=== PATIENT | male | born 1995 | race Caucasian/White ===

== ENCOUNTER 2019-09-04 20:07 | Emergency (ER) | payer SELFPAY ==
[2019-09-04] MEDS ORDERED: Proparacaine 0.5% Ophth Soln 15 ML Bottle EYERT ONE (20:44)
--- NOTE | 2019-09-04 21:03 | EDM.PDOC ---
ED HPI GENERAL MEDICAL PROBLEM - General Chief Complaint: Eye Problems Stated Complaint: RIGHT EYE INJURY Time Seen by Provider: 09/04/19 20:30 Source of Information: Reports: Patient, Family History Limitations: Reports: No Limitations - History of Present Illness INITIAL COMMENTS - FREE TEXT/NARRATIVE: 24-year-old male that had an accident at work when high-pressure yeast blew back and struck his right eye. This happened within the last hour. He has a foreign body sensation in the upper eye, erythema, and discomfort. He thinks his contact is stuck under his lid. No injury to the left eye. Onset: Sudden Duration: Hour(s): (1 hour ago) Location: Reports: Other (Right eye) Associated Symptoms: Reports: No Other Symptoms Right Eye Pain Score (Numeric/FACES): 2 - Related Data Allergies Allergy/AdvReac Type Severity Reaction Status Date / Time No Known Allergies Allergy Verified 09/04/19 20:29 Home Meds: Home Meds NK [No Known Home Meds] 09/04/19 [History] Past Medical History Musculoskeletal History: Reports: Fracture Other Musculoskeletal History: r hand Psychiatric History: Reports: Anxiety - Infectious Disease History Infectious Disease History: Reports: Chicken Pox - Past Surgical History GI Surgical History: Reports: Appendectomy Social & Family History - Tobacco Use Smoking Status *Q: Never Smoker Second Hand Smoke Exposure: No - Caffeine Use Caffeine Use: Reports: Coffee - Alcohol Use Days Per Week of Alcohol Use: 2 Number of Drinks Per Day: 3 Total Drinks Per Week: 6 - Recreational Drug Use Recreational Drug Use: No ED ROS GENERAL - Review of Systems Review Of Systems: See Below Constitutional: Denies: Fever, Chills Respiratory: Denies: Shortness of Breath Cardiovascular: Denies: Chest Pain GI/Abdominal: Denies: Abdominal Pain, Nausea, Vomiting Neurological: Denies: Headache Psychiatric: Reports: No Symptoms ED EXAM GENERAL W FULL EYE - Physical Exam Exam: See Below Exam Limited By: No Limitations General Appearance: Alert, No Apparent Distress (Looks uncomfortable but not distressed) Eyelids: Right: Erythema (Patient has erythema of the upper and lower eyelid of the right eye as well as the conjunctiva), Foreign Body (Inverting his upper lid we did find small particles of yeast that were removed, his symptoms resolved after the removal of the foreign bodies. No contact was found.) Conjunctiva & Sclera: Right: Conjunctival Edema (Mild to moderate conjunctival edema and injection) Cornea Exam: Bilateral: Normal Appearance (Cornea fortunately was normal even with fluorescein staining) Head: Atraumatic Respiratory/Chest: No Respiratory Distress Course - Vital Signs Last Recorded V/S: Last Vital Signs Temp 96.5 F L 09/04/19 20:34 Pulse 116 H 09/04/19 20:34 Resp 16 09/04/19 20:34 BP 141/98 H 09/04/19 20:34 Pulse Ox 97 09/04/19 20:34 - Orders/Labs/Meds Meds: Medications Discontinued Medications Generic Name Dose Route Start Last Admin Trade Name Freq PRN Reason Stop Dose Admin Proparacaine HCl 1 ml 09/04/19 20:44 09/04/19 20:48 Proparacaine 0.5% Ophth Soln EYERT 09/04/19 20:45 1 ml ONETIME ONE Administration - Re-Assessments/Exams Free Text/Narrative Re-Assessment/Exam: 09/04/19 21:00 After manipulating the eyelids looking for foreign bodies and his contact, the foreign body under the upper eyelid was dislodged and his symptoms resolved. We then used some proparacaine anesthesia to further examine the eye with fluorescein staining. There was some uptake on the conjunctiva around the cornea on the lower aspect of the right eye but the cornea was clear, no further foreign bodies were found under the eyelids. His symptoms had basically resolved prior to the proparacaine anesthesia. Departure - Departure Time of Disposition: 21:10 Disposition: Home, Self-Care 01 Clinical Impression: Foreign body of eyelid, right Abrasion of conjunctiva Qualifiers: Encounter type: initial encounter Laterality: right Qualified Code(s): S05.01XA - Injury of conjunctiva and corneal abrasion without foreign body, right eye, initial encounter - Discharge Information Instructions: Eye Foreign Body, [id number] Referrals: PCP,None [Primary Care Provider] - Forms: ED Department Discharge Care Plan Goals: Recheck tomorrow with optometry as planned. Sepsis Event Note - Evaluation Sepsis Screening Result: No Definite Risk - Focused Exam Vital Signs: Vital Signs Temp Pulse Resp BP Pulse Ox 09/04/19 20:34 96.5 F L 116 H 16 141/98 H 97 09/04/19 20:24 96.5 F L 116 H 16 141/98 H 97 Date Exam was Performed: 09/04/19 Time Exam was Performed: 21:25
== END 2019-09-04 21:10 | disposition home or self-care (01) ==
LOC: JP.ED 20:07
DX: S05.01XA Injury of conjunctiva and corneal abrasion without foreign body, right eye, initial encounter (principal); T15.11XA Foreign body in conjunctival sac, right eye, initial encounter; W22.8XXA Striking against or struck by other objects, initial encounter; Y92.89 Other specified places as the place of occurrence of the external cause; Y99.0 Civilian activity done for income or pay
CPT/HCPCS: 99283; A9270